=== PATIENT | male | born 1970 | race Caucasian/White ===

== ENCOUNTER 2016-12-12 16:06 | Emergency (ER) | payer BC ==
[~2016-12-12] VITALS: Ht 182.9 cm; Wt 98.0 kg
[2016-12-12 16:24] VITALS: Ht 182.9 cm; Wt 98.0 kg
[2016-12-12] MEDS ORDERED: morphine 4 MG/ML VIAL IV STA (18:06)
[2016-12-12] MEDS ORDERED: SOD CHLORIDE 0.9% 1,000 ML IV STA (18:06)
[2016-12-12] MEDS ORDERED: AMPICILLIN/SULB 3 GM/NS (PMX) 100 ML IVPB STA (18:06)
[2016-12-12 18:45] LABS: BASOPHILS % 0.2 % (0.0-2.0); EOSINOPHILS # 0.1 10^3/ul (0.0-0.5); EOSINOPHILS % 0.5 % (0.0-7.0); HEMATOCRIT 41.9 % (42.0-52.0); HEMOGLOBIN 14.6 g/dl (14.0-18.0); LYMPHOCYTES # 1.8 10^3/ul (0.8-2.9); LYMPHOCYTES % 12.7 % (15.0-51.0); MEAN CORPUSCULAR HEMOGLOBIN 30.3 pg (29.0-33.0); MEAN CORPUSCULAR HGB CONC 34.8 g/dl (32.0-37.0); MEAN CORPUSCULAR VOLUME 86.9 fl (82.0-101.0); MEAN PLATELET VOLUME 9.7 fl (7.4-10.4); MONOCYTE # 1.3 10^3/ul (0.3-0.9); NEUTROPHIL # 11.1 10^3/ul (1.6-7.5); NEUTROPHILS % 77.4 % (39.0-77.0); PLATELET COUNT 327 10^3/UL (140-415); RED BLOOD COUNT 4.82 10^6/ul (4.70-6.10); RED CELL DISTRIBUTION WIDTH 12.4 % (11.5-14.5); WHITE BLOOD COUNT 14.3 10^3/ul (4.8-10.8)
[2016-12-12] MEDS ORDERED: ONDANSETRON 4 MG INJ IV STA (18:45)
[2016-12-12] MEDS ORDERED: ONDANSETRON 4 MG INJ ONE (18:46)
[2016-12-12 19:06] LABS: CALCIUM 9.4 mg/dl (8.4-10.2); CREATININE 0.76 mg/dl (0.61-1.24)
[2016-12-12] MEDS ORDERED: KETOROLAC 30 MG INJ IV STA (19:35)
[2016-12-12] MEDS ORDERED: LIDOCAINE 2% VISC 15 ML CUP PO ONE (20:00)
[2016-12-12] MEDS ORDERED: LIDOCAINE 2%/EPI MPF (SDV) 20 ML VIAL INJ ONE (20:00)
[2016-12-12] MEDS ORDERED: HYDR-906 PO (21:17)
[2016-12-12] MEDS ORDERED: NAPR-688 PO (21:17)
[2016-12-12] MEDS ORDERED: CLIN-73 PO (21:17)
[2016-12-12 21:26] VITALS: BP 154/76; PULSE 81; RESP 18
--- NOTE | 2016-12-12 21:30 | ERD ---
ER Documentation Chief Complaint Date/Time DATE: 12/12/16 TIME: 21:21 Chief Complaint sent by PCP for throat abscess HPI This 46-year-old male was sent in by his primary care doctor for a peritonsillar abscess. He has had increasing pain for the last few days and is having trouble swallowing his secretions now. Denies fevers or chills. The pain is severe. ROS All systems reviewed and are negative except as per history of present illness. Medications Home Meds Active Scripts Clindamycin Hcl* (Clindamycin Hcl*) 300 Mg Capsule, 300 MG PO TID for 10 Days, CAP Prov:ANSHUL CERVANTES DO 12/12/16 Naproxen* (Naproxen*) 500 Mg Tablet, 500 MG PO BID Y for PAIN, #20 TAB Prov:ANSHUL CERVANTES DO 12/12/16 Hydrocodone/Acetaminophen (Holly 5-325 Tablet) 1 Each Tablet, 1 EACH PO Q6, #20 TAB Prov:ANSHUL CERVANTES DO 12/12/16 Allergies Allergies: Coded Allergies: No Known Drug Allergy (Verified Allergy, Mild, 12/12/16) PMhx/Soc History of Surgery: Yes (KNEE) Anesthesia Reaction: No Hx Neurological Disorder: No Hx Respiratory Disorders: No Hx Cardiac Disorders: No Hx Psychiatric Problems: No Hx Miscellaneous Medical Probl: No Hx Alcohol Use: Yes Hx Substance Use: No Hx Tobacco Use: No Smoking Status: Never smoker Physical Exam Vitals Vital Signs Date Time Temp Pulse Resp B/P Pulse Ox O2 Delivery O2 Flow Rate FiO2 12/12/16 16:24 98.6 79 20 176/88 98 Physical Exam Const: [] No distress Head: Atraumatic Eyes: Normal Conjunctiva ENT: Normal External Ears, Nose and Mouth. Oropharynx with right unilateral soft palate swelling with erythema almost completely encroaching on the right oropharyngeal space, uvular deviation. Neck: Full range of motion..~ No meningismus. Skin: No petechiae or rashes Ext: No cyanosis, or edema Neur: Awake and alert and oriented 3, no focal deficit Psych: Normal Mood and Affect Result Diagram: 12/12/16183612/12/167 Results 24 hrs Laboratory Tests Test 12/12/16 18:37 White Blood Count 14.310^3/ul Red Blood Count 4.8210^6/ul Hemoglobin 14.6g/dl Hematocrit 41.9% Mean Corpuscular Volume 86.9fl Mean Corpuscular Hemoglobin 30.3pg Mean Corpuscular Hemoglobin Concent 34.8g/dl Red Cell Distribution Width 12.4% Platelet Count 76583^3/UL Mean Platelet Volume 9.7fl Neutrophils % 77.4% Lymphocytes % 12.7% Monocytes % 9.0% Eosinophils % 0.5% Basophils % 0.2% Nucleated Red Blood Cells % 0.0/100WBC Neutrophils # 11.110^3/ul Lymphocytes # 1.810^3/ul Monocytes # 1.310^3/ul Eosinophils # 0.110^3/ul Basophils # 0.010^3/ul Nucleated Red Blood Cells # 0.010^3/ul Sodium Level 145mmol/L Potassium Level 4.0mmol/L Chloride Level 101mmol/L Carbon Dioxide Level 25mmol/L Anion Gap 23 Blood Urea Nitrogen 24mg/dl Creatinine 0.76mg/dl Glucose Level 101mg/dl Calcium Level 9.4mg/dl Current Medications Medications (Trade) Dose Ordered Sig/Nikki Route PRN Reason Start Time Stop Time Status Last Admin Dose Admin Sodium Chloride (NS) 1,000 ml @ 1,000 mls/hr Q1H STAT IV 12/12/16 18:06 12/12/16 19:05 DC 12/12/16 18:45 Morphine Sulfate 8 mg 8 mg ONCE STAT IV 12/12/16 18:06 12/12/16 18:08 DC 12/12/16 18:54 Ampicillin Sodium/ Sulbactam Sodium (Unasyn 3gm/NS (Pmx)) 100 ml @ 100 mls/hr ONCE STAT IVPB 12/12/16 18:06 12/12/16 19:05 DC 12/12/16 19:01 Ondansetron HCl (Zofran Inj) 4 mg ONCE STAT IV 12/12/16 18:45 12/12/16 18:46 DC 12/12/16 18:54 Ondansetron HCl (Zofran Inj) 4 mg STK-MED ONCE .ROUTE 12/12/16 18:46 12/12/16 18:47 DC Ketorolac Tromethamine (Toradol) 30 mg ONCE STAT IV 12/12/16 19:35 12/12/16 19:36 DC 12/12/16 20:23 Lidocaine/ Epinephrine (Xylocaine 2%/ Epi Mpf(Sdv)) 20 ml ONCE ONCE INJ 12/12/16 20:00 12/12/16 20:01 DC Lidocaine (Xylocaine (Viscous)) 15 ml ONCE ONCE PO 12/12/16 20:00 12/12/16 20:01 DC Procedures/MDM Right-sided peritonsillar abscess. IV was started. Patient was given 3 g of Unasyn as well as a liter of IV fluid. Was given 8 mg of morphine and 30 g of Toradol which did help control his pain well. He was able to swallow his own secretions well after that. Dr. Hayward, ENT on-call, came in to drain the peritonsillar abscess in the ER. He recommends discharge and clindamycin. I am also discharging with Holly and naproxen. Primary care follow-up in 2-3 days and follow-up with Dr. Hayward as discussed. Departure Diagnosis: Primary Impression: Peritonsillar abscess Condition: Stable Patient Instructions: Peritonsillar Abscess Referrals: FREDO HAYWARD MD Additional Instructions: Call your primary care doctor TOMORROW for an appointment during the next 2-3 days.See the doctor sooner or return here if your condition worsens before your appointment time. ANSHUL CERVANTES DO Dec 12, 2016 21:30
--- NOTE | 2016-12-13 05:39 | CONS ---
DATE OF ADMISSION: 12/12/2016 DATE OF CONSULTATION: 12/13/2016 HISTORY OF PRESENT ILLNESS: Haim Parra is a 46-year-old gentleman with a sore throat for approximately 4 days. Three days ago, he went to urgent care and was given penicillin. Over the last few days, the pain has been increasing. He presently has primarily right-sided throat pain radiating up to his ear. The ER was concerned there was a peritonsillar abscess and ENT was consulted. The patient is able to tolerate fluids but not full solid food. PAST MEDICAL HISTORY: Gout. PAST SURGICAL HISTORY: Bilateral knee surgery. ALLERGIES: NO KNOWN DRUG ALLERGIES. MEDICATIONS: Penicillin, allopurinol. SOCIAL HISTORY: Negative for tobacco, alcohol, or drug abuse. FAMILY HISTORY: Negative for any heart, lung, kidney, thyroid, or liver disease. REVIEW OF SYSTEMS: Twelve point review of systems otherwise noncontributory. PHYSICAL EXAMINATION: ENT: Today, his oral cavity and oropharynx show minimal trismus. The teeth in good repair. Tongue, floor of mouth are normal. The oropharynx does show some asymmetry with right-sided anterior tonsillar pillar edema with slight enlargement of the tonsil on the ipsilateral side. The uvula, however, is not deviated, and when I palpate the anterior tonsillar pillar, the patient does not have any tenderness, but because of the asymmetry decision was made to proceed with I and D of the right peritonsillar abscess. Risks, benefits, and alternatives were all discussed with the patient. The area was injected with approximately 5 mL of 1 percent lidocaine with 100,000 epinephrine. After a sufficient period of time had elapsed, an 11 blade was used to make an incision lateral to the tonsil. The incision was bluntly dissected using a small clamp. A culture was obtained but no pus was drained. NECK: Reveals no lymphadenopathy or thyromegaly. Trachea is midline. without lesion. There is some mild tenderness at level 2. IMPRESSION: 1. Peritonsillar cellulitis. 2. Otalgia. 3. Tonsillitis. PLAN: At this point, I think he is stable to be discharged, as he can tolerate fluids. I think it is reasonable to try a steroid as well as switching him to clindamycin rather than the penicillin. He should follow up with ENT in approximately 1 week. If there are any questions or concerns, please feel free to call at any time. Dictated By: Stalin Hayward MD /galileo/florencia /Document#: [id number]
== END 2016-12-12 21:28 | disposition home or self-care (01) ==
LOC: FTE 16:06
DX: J36 Peritonsillar abscess (principal)
CPT/HCPCS: 36415; 80048; 85025; 96374; 96375; 99284; J0295; J1885; J2270; J2405; J7030